=== PATIENT | female | born 1950 | race Asian ===

== ENCOUNTER 2022-02-15 14:44 | Observation (INO) | payer OTHER ==
[~2022-02-15] VITALS: Ht 154.9 cm; Wt 58.5 kg
[2022-02-15] MEDS ORDERED: SODIUM CHLORIDE FLUSH 10 ML SYR INJ PRN ×2 (15:15)
[2022-02-15 15:25] LABS: HEMATOCRIT 35.8 % (34.2-44.1); MEAN CORPUSCULAR HEMOGLOBIN 28.4 pg (28-32); MEAN CORPUSCULAR HGB CONC 33.5 g/dL (31-35); MEAN CORPUSCULAR VOLUME 84.8 fL (81-99); PLATELET COUNT 262 x10e3/uL (140-360); RED BLOOD COUNT 4.22 x10e6/uL (3.6-5.1); RED CELL DISTRIBUTION WIDTH 13.2 % (11.7-14.4)
[2022-02-15 15:31] LABS: LYMPHOCYTES % (MANUAL) 19 % (19-48); MONOCYTES % (MANUAL) 9 % (3.4-9.0); NEUTROPHILS % (MANUAL) 72 % (40-74); PLATELET ESTIMATE ADEQUATE; PLATELET MORPHOLOGY COMMENT NORMAL; RBC MORPHOLOGY COMMENT NORMAL
[2022-02-15] MEDS ORDERED: ONDANSETRON HCL INJ 2MG/ML 2ML 2 MG/ML VIAL ONE (15:37)
[2022-02-15] MEDS ORDERED: ACETAMINOPHEN 1000 MG/100 ML IV ONE (15:37)
[2022-02-15] MEDS ORDERED: LIDOCAINE HCL 2% LOCAL INJ 5 ML SDV VIAL INJ ONE (15:37)
[2022-02-15] MEDS ORDERED: PHENYLEPHRINE HCL 1% 10 MG/ML VIAL ONE (15:37)
[2022-02-15] MEDS ORDERED: SEVOFLURANE INHAL SOLN 250 ML PEN BTL ONE (15:37)
[2022-02-15] MEDS ORDERED: PROPOFOL IV EMULSION 10 MG/ML 20 ML VIAL ONE (15:37)
[2022-02-15] MEDS ORDERED: DEXAMETHASONE SOD PHOS INJ 4 MG/ML SDV ONE (15:37)
[2022-02-15] MEDS ORDERED: POVIDONE IODINE 0.05% 0.05 % ML PO ONE (15:37)
[2022-02-15 15:41] LABS: ANION GAP 10.2 mmol/L (8-16); CALCIUM 9.2 mg/dL (8.4-10.2); CREATININE, SERUM 1.01 mg/dL (0.57-1.11); INR 1.01; POTASSIUM 4.2 mmol/L (3.5-5.1); PROTHROMBIN TIME 14.2 seconds (11.9-14.5)
[2022-02-15] MEDS: SODIUM CHLORIDE 0.9% 1000ML 1,000 ML IV SCH (16:39)
[2022-02-15 16:54] LABS: CLARITY,URINE CLEAR (CLEAR); COLOR,URINE YELLOW (YELLOW)
[2022-02-15 16:55] LABS: KETONES,URINE NEGATIVE (NEGATIVE); LEUKOCYTE ESTERASE ,URINE NEGATIVE (NEGATIVE); NITRITE,URINE NEGATIVE (NEGATIVE); PROTEIN,URINE DIPSTICK NEGATIVE (NEGATIVE); URINE UROBILINOGEN 0.2 mg/dL (0.2 - 1)
[2022-02-15 17:00] VITALS: BP 138/69
[2022-02-15 17:01] LABS: BACTERIA,URINE RARE /HPF; EPITHELIAL CELLS,URINE FEW /LPF; RBC,URINE 0-5 /HPF (0-5); WBC,URINE (MAN) 0-5 /HPF (0-5)
[2022-02-15 17:57] VITALS: BP 138/69
[2022-02-15 18:00] VITALS: BP 138/69
[2022-02-15 19:55] VITALS: BP 122/59
[2022-02-15] MEDS ORDERED: LISINOPRIL10 MG PO (20:39)
[2022-02-15 20:56] VITALS: BP 122/59
[2022-02-16] VITALS (7 sets, daily range): BP systolic 109–156; BP diastolic 54–76
[2022-02-16] MEDS ORDERED: ACETAMINOPHEN 325 MG TAB PO PRN (02:00)
[2022-02-16] MEDS ORDERED: POTASSIUM CHLORIDE 20 MEQ TAB CR PO PRN (02:00)
[2022-02-16] MEDS ORDERED: MELATONIN 5 MG TABLET PO PRN (02:00)
[2022-02-16] MEDS ORDERED: DEXTROSE 50% SYRINGE 50 ML IV PRN (02:00)
[2022-02-16] MEDS ORDERED: LIDOCAINE 4% PATCH TP PRN (02:00)
[2022-02-16] MEDS ORDERED: ONDANSETRON HCL INJ 2MG/ML 2ML 2 MG/ML VIAL IV PRN (02:00)
[2022-02-16] MEDS ORDERED: ALBUTEROL/IPRATROPIUM 3 ML NEB NEB PRN (02:00)
[2022-02-16] MEDS ORDERED: BENZONATATE 100 MG CAP PO PRN (02:00)
[2022-02-16] MEDS ORDERED: DIPHENHYDRAMINE HCL 25 MG CAP PO PRN (02:00)
[2022-02-16] MEDS ORDERED: SIMETHICONE 80 MG CHEW PO PRN (02:00)
[2022-02-16] MEDS ORDERED: DOCUSATE SODIUM 100 MG CAP PO PRN (02:00)
[2022-02-16] MEDS ORDERED: HYDRALAZINE HCL 20 MG/ML VIAL IV PRN (02:00)
[2022-02-16] MEDS ORDERED: TRAMADOL HCL 50 MG TAB PO PRN (02:00)
[2022-02-16] MEDS: SODIUM CHLORIDE 0.9% 1000ML 1,000 ML IV SCH ×2 (05:03→21:02)
[2022-02-16] MEDS: PANTOPRAZOLE SOD 40 MG TABEC PO SCH (07:30)
[2022-02-16] MEDS ORDERED: Vancomycin IV 1 GM VIAL ONE (11:58)
[2022-02-16] MEDS ORDERED: BUPIVACAINE 0.25% 30ML SDV ONE (11:58)
[2022-02-16] MEDS ORDERED: FENTANYL CITRATE/PF 100MCG/2 ML INJ ONE ×2 (13:37→13:45)
[2022-02-16] MEDS ORDERED: MIDAZOLAM HCL 2 MG/2 ML VIAL ONE (13:37)
[2022-02-16] MEDS: KETOROLAC TROMETHAMINE 30 MG/ML VIAL IV SCH ×2 (16:09→20:55)
[2022-02-17] VITALS: BP 136/68
[2022-02-17] MEDS: KETOROLAC TROMETHAMINE 30 MG/ML VIAL IV SCH ×2 (02:46→09:10)
[2022-02-17 04:00] VITALS: BP 126/61
[2022-02-17 06:37] LABS: BASOPHILS % 0.2 % (0.0-1.0); HEMATOCRIT 31.5 % (34.2-44.1); HEMOGLOBIN 10.3 g/dL (12.0-16.0); LYMPHOCYTES # (AUTO) 1.4 (1.0-3.2); LYMPHOCYTES % 10.3 % (18.0-39.1); MEAN CORPUSCULAR HEMOGLOBIN 28.3 pg (28-32); MEAN CORPUSCULAR HGB CONC 32.7 g/dL (31-35); MEAN CORPUSCULAR VOLUME 86.5 fL (81-99); MONOCYTES # (AUTO) 0.9 (0.2-0.8); MONOCYTES % 6.6 % (4.4-11.3); NEUTROPHILS # (AUTO) 11.2 (2.1-6.9); NEUTROPHILS % 82.3 % (38.7-80.0); PLATELET COUNT 229 x10e3/uL (140-360); RED BLOOD COUNT 3.64 x10e6/uL (3.6-5.1); RED CELL DISTRIBUTION WIDTH 13.2 % (11.7-14.4)
[2022-02-17 06:56] LABS: ANION GAP 9.1 mmol/L (8-16); CALCIUM 7.7 mg/dL (8.4-10.2); CREATININE, SERUM 0.71 mg/dL (0.57-1.11); MAGNESIUM 1.8 MG/DL (1.3-2.1); PHOSPHORUS 2.2 MG/DL (2.3-4.7); POTASSIUM 4.1 mmol/L (3.5-5.1)
[2022-02-17 08:00] VITALS: BP 115/62
[2022-02-17] MEDS: SODIUM CHLORIDE 0.9% 1000ML 1,000 ML IV SCH (08:00)
[2022-02-17 09:03] VITALS: BP 115/62
[2022-02-17] MEDS: PANTOPRAZOLE SOD 40 MG TABEC PO SCH (09:10)
[2022-02-17 11:34] VITALS: BP 135/65
[2022-02-17 15:29] LABS: BASOPHILS % 0.3 % (0.0-1.0); EOSINOPHILS % 0.3 % (0.0-6.0); HEMATOCRIT 28.7 % (34.2-44.1); HEMOGLOBIN 9.6 g/dL (12.0-16.0); LYMPHOCYTES # (AUTO) 1.9 (1.0-3.2); LYMPHOCYTES % 16.7 % (18.0-39.1); MEAN CORPUSCULAR HEMOGLOBIN 28.5 pg (28-32); MEAN CORPUSCULAR HGB CONC 33.4 g/dL (31-35); MEAN CORPUSCULAR VOLUME 85.2 fL (81-99); MONOCYTES # (AUTO) 1.2 (0.2-0.8); MONOCYTES % 10.1 % (4.4-11.3); NEUTROPHILS # (AUTO) 8.3 (2.1-6.9); NEUTROPHILS % 72.3 % (38.7-80.0); PLATELET COUNT 208 x10e3/uL (140-360); RED BLOOD COUNT 3.37 x10e6/uL (3.6-5.1); RED CELL DISTRIBUTION WIDTH 13.6 % (11.7-14.4)
[2022-02-17 15:47] LABS: ANION GAP 10.1 mmol/L (8-16); CALCIUM 7.4 mg/dL (8.4-10.2); CREATININE, SERUM 0.78 mg/dL (0.57-1.11); PHOSPHORUS 2.7 MG/DL (2.3-4.7); POTASSIUM 4.1 mmol/L (3.5-5.1)
[2022-02-17 16:02] VITALS: BP 141/63
[2022-02-17] MEDS ORDERED: CALCIUM GLUC 1 G/50 ML NACL 50 ML IV ONE (17:00)
== END 2022-02-17 19:35 | disposition home or self-care (01) ==
LOC: ER 14:50 → ERHOLD 15:21 → INTOOBSV 15:21 → MED/SURG3 17:09
PROVIDERS: ADMIT Internal Medicine; ATTEND Internal Medicine
DX: S52.571A Other intraarticular fracture of lower end of right radius, initial encounter for closed fracture (principal); I10 Essential (primary) hypertension; J45.20 Mild intermittent asthma, uncomplicated; J30.2 Other seasonal allergic rhinitis; Z01.810 Encounter for preprocedural cardiovascular examination; Z01.812 Encounter for preprocedural laboratory examination; Z01.818 Encounter for other preprocedural examination; Z20.822 Contact with and (suspected) exposure to COVID-19; Z82.49 Family history of ischemic heart disease and other diseases of the circulatory system; Z82.5 Family history of asthma and other chronic lower respiratory diseases; Z91.81 History of falling
CPT/HCPCS: 25609; 36415 ×2; 71046; 73110; 80048 ×2; 81001; 83036; 83735; 84100; 85007; 85025; 85027; 85610; 85730; 86850; 86870; 86880; 86900; 86905; 93005; 93306; 94799; 97116; 97139; 97161; 99001; 99284; C1713 ×9; G0378 ×3; J0131; J1100; J1885 ×2; J2001; J2370; J2405; J2704; J3010; J3370; J7030 ×2; S0164; U0002; 76000; J2250